=== PATIENT | male | born 1980 | race Caucasian/White ===

== ENCOUNTER 2016-10-01 11:00 | Emergency (ER) | payer SELFPAY ==
--- NOTE | 2016-10-17 15:27 | ER ---
ADMIT: 10/01/2016 RM/LOC: ER [facility] MR#: [id number] [facility] [address] [place], [place] [id number] [place] [address] Emergency Room Report SEX: M AGE: 36 : 1980 DATE: 10/01/2016 Primary provider city call. HISTORY OF PRESENT ILLNESS: He has an appointment with dentist on October 05 but is here today because he has had 4 days of tooth pain, swollen gums, going down to the side of his neck and hurting. He has taken ibuprofen, which he said has helped in the past but today it did not. REVIEW OF SYSTEMS: Otherwise negative. He said he does not smoke, so the chances of him having a deep neck infection is decreased. His vitals as stated via nursing assessment. HEAD: Normocephalic and atraumatic. He does have some tenderness in the right face and gums are erythematous and swollen. He does have multiple teeth that need to be extracted, a fracture of one in tooth #5. RESPIRATIONS: No distress. Otherwise, examination is normal. He was given a shot of Rocephin. He will be going home with [employer] and pen VK. CLINICAL IMPRESSION: Dental pain, periodontal disease and abscess. Follow up with dentist, antibiotics continue at home and [place], do not drive while using the [employer]. Note for work given 2 days off. ANSHUL Vega / Leonardo Gardner MD / ron JOB #: [id number] CC: Leonardo Gardner MD, Attending Physician Phuong Munoz MD, Family Physician
== END 2016-10-01 13:45 | disposition home or self-care (01) ==
LOC: ER 11:00
DX: K05.219 Aggressive periodontitis, localized, unspecified severity (principal)